=== PATIENT | female | born 1965 | race African-American/Black ===

== ENCOUNTER 2016-06-09 07:30 | Emergency (ER) | payer MEDICAID ==
--- NOTE | 2016-06-09 08:09 | ER Document Report ---
HPI - HPI Patient complains to provider of: knee pain, leg pain Onset: Other - Chronic but worse for 3 days Onset/Duration: Gradual, Persistent, Worse Quality of pain: Achy, Sharp Pain Level: 4 Context: 51-year-old beast female with chronic back and knee pain complaining of worsening bilateral leg pain from knees down. At send sharp shooting pains from her knees. She has rheumatoid arthritis in her right knee and regular arthritis in the left knee. She becomes tearful when she walks with a slow deliberate gait leaning forward from her waist. No fever or chills. No recent injury. Has not Established care in [place]. She started new job today and wants a work note. Exacerbated by: Walking Relieved by: Denies Similar symptoms previously: Yes Recently seen / treated by doctor: No - ROS ROS below otherwise negative: Yes Systems Reviewed and Negative: Yes All other systems reviewed and negative - REPRODUCTIVE Reproductive: DENIES: : - MUSCULOSKELETAL Musculoskeletal: REPORTS: Extremity pain - DERM Skin Color: Normal Skin Problems: None - NURSING COMMENTS Comment: See triage note Past Medical History - General Information source: Patient - Social History Smoking Status: Current Every Day Smoker Cigarette use (# per day): No Chew tobacco use (# tins/day): No Frequency of alcohol use: None Drug Abuse: None Lives with: Alone Family History: Reviewed & Not Pertinent Patient has suicidal ideation: No Patient has homicidal ideation: No - Past Medical History Cardiac Medical History: Reports: Hx Hypercholesterolemia, Hx Hypertension Renal/ Medical History: Denies: Hx Peritoneal Dialysis Musculoskeltal Medical History: Reports Hx Arthritis Surgical Hx: Negative - Immunizations Hx Diphtheria, Pertussis, Tetanus Vaccination: Yes Vertical Provider Document - CONSTITUTIONAL Agree With Documented VS: Yes Exam Limitations: No Limitations Notes: Obese - INFECTION CONTROL TRAVEL OUTSIDE OF THE [place] IN LAST 30 DAYS: No - HEENT HEENT: Normocephalic - NECK Neck: Supple - RESPIRATORY Respiratory: Breath Sounds Normal, No Respiratory Distress O2 Sat by Pulse Oximetry: 100 - CARDIOVASCULAR Cardiovascular: Regular Rate, Regular Rhythm - BACK Notes: Jumps when minimally touched in her lumbar back - MUSCULOSKELETAL/EXTREMETIES Musculoskeletal/Extremeties: FROM, No Edema. negative: Eccymosis Notes: Him swelling minimally touched to bilateral anterior knees which are not swollen , red, or hot. Calves nontender - NEURO Level of Consciousness: Awake, Alert Motor/Sensory: No Motor Deficit - DERM Integumentary: Warm, Dry, No Rash Course - Re-evaluation Re-evalutation: 06/09/16 08:25 Manual blood pressure still shows elevated blood pressure. She states she has not taken her hydrochlorothiazide today and I advised her to take when she gets home. I also referred her family practice doctor which she has not established and since she moved to [place] 3 months ago. 06/09/16 08:25 This has been her fourth visit to the emergency room since January 2016 for back pain or leg pain. 06/09/16 08:26 - Vital Signs Vital signs: Temp Pulse Resp BP Pulse Ox 98.3 F 77 20 165/110 H 100 06/09/16 07:33 06/09/16 07:33 06/09/16 07:33 06/09/16 07:33 06/09/16 07:33 Discharge - Discharge Clinical Impression: exacerbation bilateral chronic knee pain Condition: Good Disposition: HOME, SELF-CARE Instructions: Family Physicians / Practices, Ultram ([facility]), Acetaminophen, Arthralgia ([facility]), Arthritis ([facility]), Rheumatoid Arthritis ([facility]) Additional Instructions: use walker for walking stability to er if worse Emergency room does not treat chronic pain see family practice doctor for treatment in [place] see orthopedic doctor for referral about joint replacement as instructed in [facility] see audit officer for evaluation of your RA and possible medication take your HCTZ when you get home Prescriptions: Tramadol HCl [Ultram 50 mg Tablet] 50 mg PO ASDIR PRN #20 tablet PRN Reason: Walker [Folding Walker] 1 each MC ASDIR PRN #1 each PRN Reason: Forms: Elevated Blood Pressure, Return to Work Referrals: JENNIFER SARKAR MD [ACTIVE STAFF] - Follow up as needed KAITY ESPOSITO MD [ACTIVE STAFF] - Follow up as needed
[2016-06-09 08:14] VITALS: BP 170/112
== END 2016-06-09 08:35 | disposition home or self-care (01) ==
LOC: ER 07:30
DX: M25.561 Pain in right knee (principal); M25.562 Pain in left knee; M79.604 Pain in right leg; M79.605 Pain in left leg; G89.29 Other chronic pain; F17.210 Nicotine dependence, cigarettes, uncomplicated
CPT/HCPCS: 99283

== ENCOUNTER 2018-12-31 20:17 | Emergency (ER) | payer MEDICARE, MEDICAID ==
--- NOTE | 2018-12-31 22:15 | RADIOLOGY REPORT (SQ) ---
EXAM DESCRIPTION: Right foot RadLex: XR FOOT 3 OR MORE VIEWS Views: 3 CLINICAL HISTORY: 53 years Female, rt great toe pain s/p injury COMPARISON: None. FINDINGS: Negative for acute fracture, dislocation, or radiopaque foreign body. Plantar calcaneal spur is noted. There are also calcifications along the distal Achilles tendon. No lytic bone changes or periosteal reaction. IMPRESSION: 1. No acute findings.
[2018-12-31] MEDS ORDERED: LIDOCAINE 1% INJ-PF (10 MG/ML) 30 ML SDV INJ ONE (22:47)
--- NOTE | 2018-12-31 23:04 | ER Document Report ---
HPI - HPI Time Seen by Provider: 12/31/18 22:36 Pain Level: 3 Notes: Patient is a 53-year-old female with history of hypertension who presents complaining of stubbing her right great toe about 4 days ago. Patient states that since then she has noticed some swelling and purulent discharge from the area. No history of MRSA or diabetes. Denies drug allergies. Patient is still able to ambulate, but does have pain to the dorsal toe. Denies any headache, fever, URI, sore throat, chest pain, palpitations, syncope, cough, shortness of breath, wheeze, dyspnea, abdominal pain, nausea/vomiting/diarrhea, urinary retention, dysuria, hematuria, loss of control of bowel or bladder, numbness/tingling, muscle paralysis/weakness, or rash. - ROS Systems Reviewed and Negative: Yes All other systems reviewed and negative - REPRODUCTIVE Reproductive: DENIES: : - MUSCULOSKELETAL Musculoskeletal: REPORTS: Extremity pain - right great toe Past Medical History - Social History Smoking Status: Current Every Day Smoker Frequency of alcohol use: Occasional Drug Abuse: None Family History: Reviewed & Not Pertinent Patient has suicidal ideation: No Patient has homicidal ideation: No - Past Medical History Cardiac Medical History: Reports: Hx Hypercholesterolemia, Hx Hypertension Endocrine Medical History: Denies: Hx Diabetes Mellitus Type 1, Hx Diabetes Mellitus Type 2 Renal/ Medical History: Denies: Hx Peritoneal Dialysis Musculoskeletal Medical History: Reports Hx Arthritis - Immunizations Hx Diphtheria, Pertussis, Tetanus Vaccination: Yes Vertical Provider Document - CONSTITUTIONAL Agree With Documented VS: Yes Notes: PHYSICAL EXAMINATION: GENERAL: Well-appearing, well-nourished and in no acute distress. LUNGS: Breath sounds clear to auscultation bilaterally and equal. No wheezes rales or rhonchi. HEART: Regular rate and rhythm without murmurs, rubs, gallops. Musculoskeletal: Rt foot: FROM to passive/active. Strength 5+/5. N/V intact distal. Extremities: No cyanosis, clubbing, or edema b/l. Peripheral pulses 2+. Capillary refill less than 3 seconds. NEUROLOGICAL: Cranial nerves grossly intact. Normal speech, normal gait. Normal sensory, motor exams PSYCH: Normal mood, normal affect. SKIN: Rt great toe: there is a fairly large paronychia noted to the proximal nail/skin fold. No felon appreciated. - INFECTION CONTROL TRAVEL OUTSIDE OF THE U.S. IN LAST 30 DAYS: No Course - Re-evaluation Re-evalutation: 12/31/18 Patient is an afebrile, well-hydrated, 53-year-old female who presents to the ED with Rt great toe pain, suspect contusion, and paronychia. Vitals are acceptable without any significant tachycardia, tachypnea, or hypoxia. PE is otherwise unremarkable for any neurovascular compromise, obvious tendon/ligament rupture, obvious fracture/dislocation, septic joint. X-ray was unremarkable for any acute pathology. I&D performed successfully without any complications and patient tolerated procedure well. Wound culture was obtained. Patient is nontoxic-appearing. Patient is able to ambulate and weight-bear. No other labs or imaging warranted at this time based on H&P. I will send her home with prescription for Keflex/Bactrim. Conservative measures otherwise for symptoms. Recheck with your PCM in 2-3 days. Consider consult podiatry. Return to the ED with any worsening/concerning symptoms otherwise as reviewed in discharge. Patient is in agreement. - Vital Signs Vital signs: Temp Pulse Resp BP Pulse Ox 97.9 F 74 20 196/112 H 97 12/31/18 20:59 12/31/18 20:59 12/31/18 20:59 12/31/18 20:59 12/31/18 20:59 Procedures - Incision and Drainage Right Great toe Type: Simple Blade size: 11 I&D procedure: Chlorprep applied, Sterile dressing applied Incision Method: Incision made by scalpel Amount/type of drainage: moderate purulent/bloody Discharge - Discharge Clinical Impression: Pain of right great toe, Paronychia Condition: Stable Disposition: HOME, SELF-CARE Instructions: Paronychia ([facility]) Additional Instructions: Keep the skin clean Wash with soap and water Tylenol/ibuprofen if needed Triple antibiotic ointment daily Take medication as directed Monitor for any worsening symptoms Recheck with your PCM in 2-3 days Return to the ED with any worsening symptoms and/or development of fever, headache, chest pain, palpitations, syncope, shortness of breath, trouble breathing, abdominal pain, n/v/d, abscess, purulent discharge, red streaks, worsening swelling, or other worsening symptoms that are concerning to you. Prescriptions: Sulfamethoxazole/Trimethoprim [Bactrim Ds Tablet] 1 each PO BID #20 tablet Cephalexin Monohydrate [Keflex 500 mg Capsule] 500 mg PO TID #30 capsule Forms: Elevated Blood Pressure, Smoking Cessation Education Referrals: ASHLY TODD DPM [ACTIVE STAFF] - Follow up as needed
[2018-12-31] MEDS ORDERED: CEPHALEXIN 500 MG CAPSULE PO ONE (23:28)
[2018-12-31] MEDS ORDERED: SULFAMETHOXAZOLE/TRIMETHOPRIM 800-160 MG TABLET PO ONE (23:29)
[2018-12-31 23:42] VITALS: BP 175/103
== END 2018-12-31 23:56 | disposition home or self-care (01) ==
LOC: ER 20:17
DX: L03.031 Cellulitis of right toe (principal); M79.674 Pain in right toe(s)
CPT/HCPCS: 99283; 87070; 87205; 87075; 87077; 73630; 10060; A9270 ×2

== ENCOUNTER → 2019-03-17 | Outpatient (CLI) | payer MEDICARE, MEDICAID ==
--- NOTE | 2019-03-17 09:50 | RADIOLOGY REPORT (SQ) ---
EXAM DESCRIPTION: CT HEAD WITHOUT COMPLETED DATE/TIME: 03/17/2019 9:36 am REASON FOR STUDY: ALTERED MENTAL STATUS M86.179 OTHER ACUTE OSTEOMYELITIS, UNSPECIFIED ANKLE AND FO O R41.82 ALTERED MENTAL STATUS, UNSPECIFIED COMPARISON: None. TECHNIQUE: Axial images acquired through the brain without intravenous contrast. Images reviewed wi th bone, brain and subdural windows. Additional sagittal and coronal reconstructions were generated. Images stored on PACS. All CT scanners at this facility use dose modulation, iterative reconstruction, and/or weight based d osing when appropriate to reduce radiation dose to as low as reasonably achievable (ALARA). [facility]: Dose Right [facility]: CareDose [facility]: Dose Right [facility]: Teradose 4D [facility]: Radiate Media RADIATION DOSE: CT Rad equipment meets quality standard of care and radiation dose reduction techniq ues were employed. CTDIvol: 48.5 mGy. DLP: 879 mGy-cm. mGy. LIMITATIONS: None. FINDINGS: VENTRICLES: Normal size and contour. CEREBRUM: No masses. No hemorrhage. No midline shift. No evidence for acute infarction. Normal gra y/white matter differentiation. No areas of low density in the white matter. CEREBELLUM: No masses. No hemorrhage. No alteration of density. No evidence for acute infarction. EXTRAAXIAL SPACES: No fluid collections. No masses. ORBITS AND GLOBE: No intra- or extraconal masses. Normal contour of globe without masses. CALVARIUM: No fracture. PARANASAL SINUSES: No fluid or mucosal thickening. SOFT TISSUES: No mass or hematoma. OTHER: No other significant finding. IMPRESSION: NORMAL BRAIN CT WITHOUT CONTRAST. EVIDENCE OF ACUTE STROKE: NO. COMMENT: Quality ID # [id number]: Final reports with documentation of one or more dose reduction techniques (e.g., Automated exposure control, adjustment of the mA and/or kV according to patient size, use of iterative reconstruction technique) TECHNICAL DOCUMENTATION: JOB ID: [id number] [employer]- All Rights Reserved Reading location - IP/workstation name: [email or web address]
--- NOTE | 2019-03-17 14:53 | RADIOLOGY REPORT (SQ) ---
EXAM DESCRIPTION: FOOT RIGHT COMPLETE COMPLETED DATE/TIME: 03/17/2019 1:50 pm REASON FOR STUDY: OSTEOMYELITIS OF RT BIG TOE (COMPARE TO NM 3PH BONE SCAN 03/17/19) M86.179 OTHER ACUTE OSTEOMYELITIS, UNSPECIFIED ANKLE AND KAREN R41.82 ALTERED MENTAL STATUS, UNSPECIFIED COMPARISON: AP, oblique, lateral views of the right foot from 12/31/2018. NUMBER OF VIEWS: Three views. TECHNIQUE: AP, lateral and oblique radiographic images acquired of the right foot. LIMITATIONS: None. FINDINGS: MINERALIZATION: Normal. BONES: No acute fracture or dislocation. JOINTS: Osteoarthrosis of the 1st MTP joint. The tarsometatarsal alignment is preserved. SOFT TISSUES: No soft tissue swelling, subcutaneous emphysema or radiopaque foreign body. OTHER: Dorsal midfoot osteophytes and enthesophytes at the calcaneal insertion of the plantar fascia and Achilles tendon. IMPRESSION: No acute osseous abnormality of the right foot. TECHNICAL DOCUMENTATION: JOB ID: [id number] [employer]- All Rights Reserved Reading location - IP/workstation name: [email or web address]
--- NOTE | 2019-03-17 16:02 | RADIOLOGY REPORT (SQ) ---
EXAM DESCRIPTION: NM 3 PHASE BONE SCAN COMPLETED DATE/TIME: 03/17/2019 2:03 pm REASON FOR STUDY: OSTEOMYELITIS M86.179 OTHER ACUTE OSTEOMYELITIS, UNSPECIFIED ANKLE AND KAREN R41.82 ALTERED MENTAL STATUS, UNSPECIFIED COMPARISON: Radiographs 03/17/2019 12/31/2018 RADIONUCLIDE AND DOSE: 20 millicuries Tc99m HDP. The route of agent administration: Intravenous. ADDITIONAL DRUGS AND DOSES: None. TECHNIQUE: Following injection of the radiopharmaceutical, serial blood flow images acquired. Equil ibrium blood pool images then acquired. Routine delayed images at 3 hours acquired of the areas of c linical concern with additional focused images as needed. AREA OF INTEREST: Right foot LIMITATIONS: None. FINDINGS: VASCULAR FLOW IMAGES: There is mild hyperemia in the right foot. BLOOD POOL IMAGES: Blood pool images demonstrate mild increased activity in the right midfoot and als o increased activity in the left calcaneus. BONES: Delayed images show increased activity in the right midfoot laterally, increased activity in t he superior dorsal aspect of the right calcaneus, and in the superior dorsal aspect of the left calca neus. KIDNEYS: Symmetric excretion without obstruction. OTHER: No other significant finding. IMPRESSION: 1. There is mild hyperemia in the right foot with slightly increased blood pool activit y in the midfoot and with delayed activity in the midfoot laterally. The etiology is uncertain, damien cially given the lack of findings on the radiographs. An early osteomyelitis in the cuboid is a poss ibility. Soft tissue infection with reactive changes in the bone might be considered. Clinical irvin elation is recommended. 2. There is increased uptake in the superior dorsal aspect of each calcaneus possibly suggesting mai nges relating to Achilles tendinopathy bilaterally. COMMENT: Quality measure 147: Current bone scan is compared with any available plain radiographs, p rior bone scans, and CT/MRI. TECHNICAL DOCUMENTATION: JOB ID: [id number] [employer]- All Rights Reserved Reading location - IP/workstation name: [email or web address]
== END ==
LOC: RAD 09:20
PROVIDERS: ATTEND Family Medicine
DX: M86.171 Other acute osteomyelitis, right ankle and foot (principal); R41.82 Altered mental status, unspecified
CPT/HCPCS: 73630; 78315; 70450; A9561; Q9969

== ENCOUNTER 2019-05-30 13:00 | Emergency (ER) | payer MEDICARE, MEDICAID ==
--- NOTE | 2019-05-30 14:06 | ER Document Report ---
ED Medical Screen (RME) - General Chief Complaint: Pain All Over Stated Complaint: PAIN ALL OVER Time Seen by Provider: 05/30/19 13:59 Primary Care Provider: TAI FAGAN MD [Primary Care Provider] - Follow up as needed Notes: Patient is a 54-year-old female presents emergency department with a chief complaint of right-sided body pain. Patient reports she saw her primary care physician on Thursday and was given an antibiotic shot, a steroid shot and placed on oral antibiotics. Patient believes this is azithromycin. Patient reports throughout the weekend the pain is gotten worse. Patient reports this is specifically worse on the right. Patient reports facial pain. Patient reports having sharp right-sided chest pain that radiates into her back. Patient denies fever. TRAVEL OUTSIDE OF THE U.S. IN LAST 30 DAYS: No - Related Data Allergies/Adverse Reactions: No Known Allergies Allergy (Verified 05/30/19 13:47) Past Medical History - Social History Chew tobacco use (# tins/day): No Frequency of alcohol use: Occasional Drug Abuse: None - Past Medical History Cardiac Medical History: Reports: Hx Hypercholesterolemia, Hx Hypertension Endocrine Medical History: Denies: Hx Diabetes Mellitus Type 1, Hx Diabetes Mellitus Type 2 Renal/ Medical History: Denies: Hx Peritoneal Dialysis Musculoskeltal Medical History: Reports Hx Arthritis - Immunizations Hx Diphtheria, Pertussis, Tetanus Vaccination: Yes Physical Exam - Vital signs Vitals: Temp Pulse Resp BP Pulse Ox 98.0 F 87 16 153/92 H 99 05/30/19 13:05 05/30/19 13:05/30/19 13:05/30/19 13:05/30/19 13:05 - Cardiovascular Rhythm: Regular Heart sounds: Normal auscultation, S1 appreciated, S2 appreciated Notes: She does have right chest wall reproducible pain. Course - Re-evaluation Re-evalutation: 05/30/19 14:05 I have greeted and performed a rapid initial assessment of this patient. A comprehensive ED assessment and evaluation of the patient, analysis of test results and completion of the medical decision making process will be conducted by additional ED providers. - Vital Signs Vital signs: Temp Pulse Resp BP Pulse Ox 98.0 F 87 16 153/92 H 99 05/30/19 13:05 05/30/19 13:05 05/30/19 13:05 05/30/19 13:05 05/30/19 13:05 Doctor's Discharge - Discharge Referrals: TAI FAGAN MD [Primary Care Provider] - Follow up as needed
--- NOTE | 2019-05-30 14:14 | ER Document Report ---
ED General - General Chief Complaint: Pain All Over Stated Complaint: PAIN ALL OVER Time Seen by Provider: 05/30/19 13:59 Primary Care Provider: TAI FAGAN MD [Primary Care Provider] - Follow up as needed Mode of Arrival: Ambulatory Information source: Patient TRAVEL OUTSIDE OF THE [place]. IN LAST 30 DAYS: No - HPI Onset: Other - over the last week Onset/Duration: Gradual - over the last week Quality of pain: Achy, Cramping Severity: Moderate Pain Level: 3 Associated symptoms: Chest pain, Nonproductive cough, Other - body aches (right worse then left) Exacerbated by: Walking, Other Similar symptoms previously: No Recently seen / treated by doctor: Yes - by her PCP last week Notes: 54 year old female with a history of HTN and HLD here for 1-2 weeks of chest and body pains. The patient says she has had viral like symptoms over the last several weeks with a cough and diarrhea but most of the viral like symptoms have since passed. The patient says she was having subjective fevers and chills but those too have passed. The patient is currently on a Zpack. - Related Data Allergies/Adverse Reactions: No Known Allergies Allergy (Verified 05/30/19 13:47) Past Medical History - General Information source: Patient - Social History Smoking Status: Current Every Day Smoker Chew tobacco use (# tins/day): No Frequency of alcohol use: Occasional Drug Abuse: None Lives with: Alone Family History: Reviewed & Not Pertinent Patient has suicidal ideation: No Patient has homicidal ideation: No - Past Medical History Cardiac Medical History: Reports: Hx Hypercholesterolemia, Hx Hypertension Endocrine Medical History: Denies: Hx Diabetes Mellitus Type 1, Hx Diabetes Mellitus Type 2 Renal/ Medical History: Reports: None. Denies: Hx Peritoneal Dialysis Malignancy Medical History: Reports: None GI Medical History: Reports: None Musculoskeletal Medical History: Reports Hx Arthritis Skin Medical History: Reports None Psychiatric Medical History: Reports: None Traumatic Medical History: Reports: None Infectious Medical History: Reports: None - Immunizations Hx Diphtheria, Pertussis, Tetanus Vaccination: Yes Review of Systems - Review of Systems Constitutional: Chills, Fever EENT: No symptoms reported Cardiovascular: Chest pain Respiratory: Cough, Short of breath Gastrointestinal: Diarrhea Genitourinary: No symptoms reported Female Genitourinary: No symptoms reported Musculoskeletal: Other - body aches Skin: No symptoms reported Hematologic/Lymphatic: No symptoms reported Neurological/Psychological: No symptoms reported Physical Exam - Vital signs Vitals: Temp Pulse Resp BP Pulse Ox 98.0 F 87 16 153/92 H 99 05/30/19 13:05 05/30/19 13:05 05/30/19 13:05 05/30/19 13:05/30/19 13:05 - Notes Notes: GENERAL: Well-appearing, well-nourished and in no acute distress. HEAD: Atraumatic, normocephalic. EYES: Pupils equal round and reactive to light, extraocular movements intact, sclera anicteric, conjunctiva are normal. ENT: TMs normal, nares patent, oropharynx clear without exudates. Moist mucous membranes. NECK: Normal range of motion, supple without lymphadenopathy or JVD. LUNGS: Breath sounds clear to auscultation bilaterally and equal. No wheezes rales or rhonchi. HEART: Regular rate and rhythm without murmurs, rubs or gallops. CHEST: mild diffuse chest tenderness on palpation. ABDOMEN: Soft, nontender, normoactive bowel sounds. No guarding, no rebound. No masses appreciated. EXTREMITIES: Normal range of motion, no pitting or edema. No clubbing or cyanosis. Mild diffuse tenderness of extremities. NEUROLOGICAL: Cranial nerves II through XII grossly intact. Normal speech, normal gait. PSYCH: Normal mood, normal affect. SKIN: Warm, Dry, normal turgor, no rashes or lesions noted. Course - Re-evaluation Re-evalutation: 05/30/19 17:01 The patient is here for body pains and chest pains. She sounds like she could be getting over a viral illness. She tested negative for the flu last week at her PCPs. Her work up today is unremarkable except her H/H are slightly elevated (this could be due to dehydration/hemoconcentration) but patient should follow up with her PCP to ensure no other cause. Patient's symptoms do not sound concerning for ACS and her EKG is unremarkable and Trop is negative today in the ER. Patient's body pains were treated with oral Toradol. - Vital Signs Vital signs: Temp Pulse Resp BP Pulse Ox 98.7 F 87 24 H 183/111 H 98 05/30/19 17:05/30/19 13:05 05/30/19 17:01 05/30/19 17:01 05/30/19 17:01 - Laboratory Result Diagrams: 05/30/19 15:48 05/30/19 15:48 Laboratory results interpreted by me: 05/30/19 15:48 RBC 5.65 H Hgb 17.2 H Hct 50.4 H Lymph % (Auto) 46.6 H Seg Neutrophils % 40.4 L - EKG Interpretation by Me EKG shows normal: Sinus rhythm, Intervals Rate: Normal Rhythm: NSR [place]/QRS: Left axis deviation When compared to previous EKG there are: No significant change Additional EKG results interpreted by me: 05/30/19 15:13 T wave inversions in I and aVL Discharge - Discharge Clinical Impression: Total body pain Chest pain Qualifiers: Chest pain type: unspecified Qualified Code(s): R07.9 - Chest pain, unspecified Condition: Stable Disposition: HOME, SELF-CARE Instructions: Chest Pain of Unclear Cause ([facility]) Additional Instructions: Use Tylenol and Motrin for body pain. Drink plenty of fluids in the days to come. Follow up with your primary care doctor to ensure resolution of symptoms and to have your hemoglobin rechecked (it was 17.2 in the ER today). Referrals: TAI FAGAN MD [Primary Care Provider] - Follow up as needed
--- NOTE | 2019-05-30 14:37 | RADIOLOGY REPORT (SQ) ---
EXAM DESCRIPTION: CHEST 2 VIEWS COMPLETED DATE/TIME: 05/30/2019 2:17 pm REASON FOR STUDY: right chest wall pain COMPARISON: 03/08/2016 EXAM PARAMETERS: NUMBER OF VIEWS: two views TECHNIQUE: Digital Frontal and Lateral radiographic views of the chest acquired. RADIATION DOSE: NA LIMITATIONS: none FINDINGS: LUNGS AND PLEURA: No opacities, masses or pneumothorax. No pleural effusion. MEDIASTINUM AND HILAR STRUCTURES: No masses or contour abnormalities. HEART AND VASCULAR STRUCTURES: Heart normal size. No evidence for failure. BONES: No acute findings. HARDWARE: None in the chest. OTHER: No other significant finding. IMPRESSION: NO ACUTE RADIOGRAPHIC FINDING IN THE CHEST. TECHNICAL DOCUMENTATION: JOB ID: [id number] [employer]- All Rights Reserved Reading location - IP/workstation name: [email or web address]
[2019-05-30] MEDS ORDERED: KETOROLAC TROMETHAMINE 10 MG TABLET PO ONE (14:52)
[2019-05-30 16:31] LABS: ABSOLUTE LYMPHOCYTES (AUTO) 2.8 10^3/uL (0.5-4.7); ABSOLUTE MONOCYTES (AUTO) 0.7 10^3/uL (0.1-1.4); ABSOLUTE NEUT (AUTO) 2.4 10^3/uL (1.7-8.2); BASOPHILS % (AUTO) 0.5 % (0-2); EOSINOPHILS % (AUTO) 0.3 % (0-6); HEMATOCRIT 50.4 % (36.0-47.0); HEMOGLOBIN 17.2 g/dL (12.0-15.5); LYMPHOCYTES % (AUTO) 46.6 % (13-45); MEAN CORPUSCULAR HEMOGLOBIN 30.5 pg (27.0-33.4); MEAN CORPUSCULAR HGB CONC 34.2 g/dL (32.0-36.0); MEAN CORPUSCULAR VOLUME 89 fl (80-97); MONOCYTES % (AUTO) 12.2 % (3-13); PLATELET COUNT 201 10^3/uL (150-450); RED BLOOD COUNT 5.65 10^6/uL (3.72-5.28); RED CELL DISTRIBUTION WIDTH 13.5 % (11.5-14.0); SEGMENTED NEUTROPHILS % (AUTO) 40.4 % (42-78); TOTAL CELLS COUNTED % (AUTO) 100 %
[2019-05-30 16:46] LABS: ALBUMIN 4.7 g/dL (3.5-5.0); ALKALINE PHOSPHATASE 74 U/L (38-126); ANION GAP 14 (5-19); ASPARTATE AMINO TRANSFERASE 24 U/L (14-36); BILIRUBIN,DIRECT 0.4 mg/dL (0.0-0.4); BILIRUBIN,TOTAL 0.5 mg/dL (0.2-1.3); BLOOD UREA NITROGEN 17 mg/dL (7-20); CARBON DIOXIDE 25 mmol/L (22-30); CHLORIDE 105 mmol/L (98-107); CREATINE KINASE 98 U/L (30-135); GLUCOSE 79 mg/dL (75-110); TOTAL PROTEIN 8.2 g/dL (6.3-8.2)
[2019-05-30 16:59] LABS: CREATINE KINASE MB 1.17 ng/mL (<4.55)
[2019-05-30 17:02] LABS: TROPONIN I < 0.012 ng/mL
[2019-05-30 18:02] VITALS: BP 179/98
--- NOTE | 2019-05-30 20:54 | EKG REPORT ---
SEVERITY:- ABNORMAL ECG - SINUS RHYTHM PROBABLE LEFT VENTRICULAR HYPERTROPHY ABNORMAL T, CONSIDER ISCHEMIA, LATERAL LEADS : Confirmed by: Jason Gary 30-May-2019 20:53:37
== END 2019-05-30 18:00 | disposition home or self-care (01) ==
LOC: ER 13:00
DX: M79.10 Myalgia, unspecified site (principal); R07.9 Chest pain, unspecified; F17.200 Nicotine dependence, unspecified, uncomplicated; E78.00 Pure hypercholesterolemia, unspecified; I10 Essential (primary) hypertension
CPT/HCPCS: 36415; 71046; 80053; 82550; 82553; 83735; 84484; 85025; 93005; 93010; 99284